=== PATIENT | male | born 1995 | race Two or more races ===

== ENCOUNTER 2017-08-08 23:58 | Emergency (ER) | payer OTHER ==
[~2017-08-08] VITALS: Ht 180.3 cm; Wt 70.1 kg
[2017-08-09] MEDS ORDERED: KETOROLAC 30 MG/1 ML ONE (00:24)
[2017-08-09] MEDS ORDERED: KETOROLAC 30 MG/1 ML IM ONE ×2 (00:30→01:00)
[2017-08-09 01:39] VITALS: BP 103/67
== END 2017-08-09 01:41 | disposition home or self-care (01) ==
LOC: ED 08-09 01:30
DX: R07.81 Pleurodynia (principal)
CPT/HCPCS: 71020; 93005; 96372; 99284; J1885